=== PATIENT | female | born 1955 | race Asian ===

== ENCOUNTER 2019-07-31 13:44 | Outpatient (CLI) | payer OTHER ==
--- NOTE | 2019-07-31 16:45 | Ultrasound Report ---
Reason: ABN MAMMO Procedure Date: 07/31/2019 Accession Number: [id number] / [id number] Procedure: US - Breast Unilateral Limited CPT Code: FULL RESULT: EXAM: Breast Unilateral Limited, Diagnostic Dig Bilat DATE: 07/31/2019 4:03 PM CLINICAL HISTORY: Palpable right breast lump COMPARISON: 07/01/2014, 11/07/2011, 10/27/2010 TECHNIQUE: (B) - Bilateral CC and MLO views were obtained. PARENCHYMAL PATTERN: (D) - The breasts demonstrate heterogeneously dense fibroglandular parenchyma bilaterally. FINDINGS: Right breast: There is a spiculated mass in the 3:00 position 4 cm from the nipple there are a few faint associated calcifications. Left breast: No dominant mass, architectural distortion, skin thickening, or suspicious microcalcifications. RIGHT BREAST ULTRASOUND: TECHNIQUE: Real-time scanning by the director hr communications with saved static images reviewed. FINDINGS: Corresponding to the palpable right breast mass is a 1.9 x 1.2 x 1.4 cm vascular irregular hypoechoic mass with posterior shadowing 3:00 position 4 cm from the nipple. IMPRESSION: Highly suggestive for malignancy. BI-RADS category 5. Right breast RECOMMENDATION: (BIOPSY) - ultrasound-guided core biopsy right breast Results called to ANA LILIA Almonte at 4:30 PM 07/31/2019. BI-RADS CATEGORY: (5) - Highly suggestive for malignancy. STANDARD QUALIFYING STATEMENTS: 1. This examination was not reviewed with the aid of Computer-Aided Detection (CAD). 2. A negative or benign imaging report should not preclude biopsy if clinically suspicious findings are present. 3. Dense breasts may obscure an underlying neoplasm. 4. This examination was reviewed with the aid of 3D breast imaging (tomosynthesis).
== END 2019-07-31 13:45 | disposition home or self-care (01) ==
LOC: DI 13:44
PROVIDERS: ATTEND Physician Assistant
DX: N63.15 Unspecified lump in the right breast, overlapping quadrants (principal)
CPT/HCPCS: 76642; 77066

== ENCOUNTER 2019-08-18 10:14 | Outpatient (CLI) | payer OTHER ==
[2019-08-18] MEDS ORDERED: BUPIVACAINE 0.5%-EPI 1:200000 PF 10 ML VIAL ONE (11:23)
[2019-08-18] MEDS ORDERED: BUFFERED LIDOCAINE 10 ML SYRINGE ONE (11:23)
--- NOTE | 2019-08-18 12:58 | Ultrasound Report ---
Reason: ABNORMAL MAMMOGRAM Procedure Date: 08/18/2019 Accession Number: [id number] / [id number] Procedure: US - Biopsy Breast Core CPT Code: Final Report FULL RESULT: EXAM: Diagnostic Dig RT, Biopsy Breast Core DATE: 08/18/2019 12:18 PM CLINICAL HISTORY: Suspicious mass right breast 3:00 4 cm from the nipple on recent diagnostic imaging. Patient presented with the newly palpable lump. TECHNIQUE: (R) - Right ultrasound-guided breast biopsy and post biopsy CC and ML mammography. Informed consent was obtained. Entry site was marked on the skin surface. The skin was prepped and draped in the usual sterile fashion. Skin and deeper tissues were anesthetized with 10 cc of 1% lidocaine. A small dermatotomy was made in the skin and then a coaxial 14-gauge achieve needle biopsy was utilized to obtain 3 core samples through the 1.9 cm mass right breast 3:00 4 cm from the nipple from a medial approach. A cork marker clip was then placed under direct sonographic guidance. [place] were removed and the hemostasis was achieved with direct pressure. The skin michelle was closed with Steri-Strips and overlying skin was bandaged. Postprocedural mammogram shows clip along the medial margin of the mass without evidence of complication. Patient tolerated the procedure well and was discharged in good condition. IMPRESSION: Successful core biopsy of 1.9 cm mass right breast 3:00 4 cm from the nipple. Final recommendations are pending histologic results. Radiologic/pathologic concordance will be performed and addendum to this report will be issued. Patient is scheduled to receive her biopsy results from ANA LILIA Young on 08/21/2019 at 3:00 PM.
[2019-08-18] MEDS ORDERED: BUFFERED LIDOCAINE 10 ML SYRINGE IU ONE (13:07)
[2019-08-18] MEDS ORDERED: BUPIVACAINE 0.5%-EPI 1:200000 PF 10 ML VIAL SUBQ ONE (13:07)
== END 2019-08-18 10:15 | disposition home or self-care (01) ==
LOC: DI 10:14
PROVIDERS: ATTEND Physician Assistant
DX: C50.811 Malignant neoplasm of overlapping sites of right female breast (principal); Z17.0 Estrogen receptor positive status [ER+]
CPT/HCPCS: 19083

== ENCOUNTER 2019-09-08 14:39 | Outpatient (CLI) | payer OTHER ==
[2019-09-08] MEDS ORDERED: GADOBUTROL 10 MMOL/10 ML VIAL ONE (14:53)
[2019-09-08 15:33] LABS: CREATININE 0.8 mg/dL (0.4-1.0)
[2019-09-08] MEDS: GADOBUTROL 10 MMOL/10 ML VIAL IVP ONE (18:21)
--- NOTE | 2019-09-09 15:24 | MRI Report ---
Reason: ADENOCARCINOMA, RT BREAST, ER AND ND POSITIVE Procedure Date: 09/08/2019 Accession Number: [id number] / [id number] Procedure: MRI - Breast W/WO Cont CPT Code: 47697 Final Report FULL RESULT: EXAM: Breast W/WO Cont DATE: 09/08/2019 6:11 PM CLINICAL HISTORY: The patient is a 63-year-old female with newly diagnosed right breast cancer history of right breast cancer- infiltrating carcinoma (ER and ND positive). Pretreatment MRI requested to assess for extent of disease. TECHNIQUE: Body Coil: (Limited chest MRI) - Coronal LFOV STIR Dedicated breast coil: Axial - precontrast STIR Axial - postcontrast sequential 1 minute three-dimensional FLASH (x 5) Axial - high-resolution volumetric water stimulation acquisition (VIEWS) CONTRAST USED: 6 mL Gadavist (gadolinium). POSTPROCESSING: Subtraction dynamic/curve analysis and multiplanar reformations with CAD stream FINDINGS: Parenchymal Pattern: Diffuse bilateral heterogeneously dense fibroglandular tissue. Computed small embedded simple cysts. Parenchymal enhancement: Minimal scattered foci of background enhancement. Right breast: The biopsy-proven malignant lesion in the 3:00 position is confirmed as an irregularly-marginated hypervascular mass measuring approximately 19 x 12 x 15 mm. A microclip is on the posterior lateral margin. There is no evidence for overlying skin invasion. There are no additional foci of mass or nonmass enhancement to suggest multifocal or multicentric disease. There are no pathologically enlarged axillary or internal mammary lymph nodes. Left breast: There is no focus of suspicious mass or nonmass enhancement. There are no pathologically enlarged axillary or internal mammary lymph nodes. Other: The heart appears prominent in size. A small pericardial effusion cannot be excluded. A 1.3 cm hyperintense lesion affiliated with the right lobe of the liver is a presumed cyst. IMPRESSION: 1. The biopsy-proven malignant mass in the right breast is confirmed and measures 19 mm in maximal dimension. There is no evidence for multifocal, multicentric or contralateral disease. 2. Incidental findings: Prominent heart size, small pericardial effusion and hepatic cyst. BI-RADS Category 6 -known malignancy. COMMENT: The literature indicates that a negative dynamic breast MRI has a high sensitivity and specificity for the detection of invasive carcinoma (to a threshold of 5 mm). MRI is not reliably sensitive for detecting ductal carcinoma in situ or large invasive neoplasms with only minimal enhancement (i.e. mucinous carcinoma). Normal-appearing lymph nodes on MRI may contain microscopic tumor. Appropriate clinical mammographic and sonographic followup should be performed if recommended. Negative MRI should not dissuade further evaluation of any suspicious mammographic calcifications and/or worrisome palpable masses.
== END 2019-09-08 14:40 | disposition home or self-care (01) ==
LOC: DI 14:39
PROVIDERS: ATTEND Surgery
DX: C50.911 Malignant neoplasm of unspecified site of right female breast (principal); Z17.0 Estrogen receptor positive status [ER+]
CPT/HCPCS: 36415; 77049; 82565

== ENCOUNTER 2019-09-29 08:21 | Day surgery (SDC) | payer OTHER ==
[~2019-09-29 08:21] MED LIST: CEFAZOLIN SODIUM IN 0.9 % NACL 2 GM/100 ML BAG IV ONE
[2019-09-29] MEDS ORDERED: PROPOFOL 200 MG/20 ML VIAL IVP ONE (08:22)
[2019-09-29] MEDS ORDERED: ACETAMINOPHEN 1,000 MG/100 ML 100 ML IV ONE (08:22)
[2019-09-29] MEDS ORDERED: DEXAMETHASONE 4 MG/ML VIAL IVP ONE (08:22)
[2019-09-29] MEDS ORDERED: GLYCOPYRROLATE 1 MG/5 ML VIAL IVP ONE (08:22)
[2019-09-29] MEDS ORDERED: ROCURONIUM 50 MG/5 ML VIAL IVP ONE (08:22)
[2019-09-29] MEDS ORDERED: KETOROLAC 30 MG/ML VIAL IVP ONE (08:22)
[2019-09-29] MEDS ORDERED: MIDAZOLAM 2 MG/2 ML VIAL IVP ONE (08:22)
[2019-09-29] MEDS ORDERED: fentaNYL 100 MCG/2 ML VIAL IVP ONE (08:22)
[2019-09-29] MEDS ORDERED: NEOSTIGMINE 1 MG/1 ML 10 ML MDV IVP ONE (08:22)
[2019-09-29] MEDS ORDERED: LACTATED RINGERS 1,000 ML IV ONE (08:53)
[2019-09-29] MEDS ORDERED: BUFFERED LIDOCAINE 10 ML SYRINGE ONE (09:01)
[2019-09-29] MEDS ORDERED: BUFFERED LIDOCAINE 10 ML SYRINGE IU ONE (09:50)
[2019-09-29] MEDS ORDERED: LIDOCAINE 1%-EPI 1:100000 20 ML MDV ONE (10:48)
[2019-09-29] MEDS ORDERED: BUPIVACAINE 0.5% PF 30 ML VIAL ONE (10:48)
--- NOTE | 2019-09-29 11:12 | Nuclear Medicine Report ---
Reason: RT BREAST CA Procedure Date: 09/29/2019 Accession Number: [id number] / [id number] Procedure: NM - Lymph Node Scintigraphy CPT Code: Final Report FULL RESULT: EXAM: SENTINEL LYMPH NODE RADIOTRACER INJECTION WITH IMAGING EXAM DATE: 09/29/2019 10:47 AM. CLINICAL HISTORY: Right breast CA. COMPARISON: None. TECHNIQUE: The injection site of the right breast was cleansed according to protocol. Next, a total of 0.49 mCi Tc-99m sulfur colloid in 1 cc saline was injected into the same site. After appropriate delay, the patient was imaged according to the protocol. FINDINGS: A single focus of uptake in the right axillary region consistent with sentinel lymph node is seen upon initial imaging, less than 3 minutes following injection. The patient tolerated the procedure well. IMPRESSION: 1. [place] lymph node injection, without complication. 2. 1 focus in the right axilla, compatible with sentinel lymph node. RADIA
--- NOTE | 2019-09-29 11:48 | ANESTHESIA ---
Pre-Anesthesia VS, & Labs - Diagnosis R breast CA - Procedure R breast lumpectomy Vital Signs: Temp Pulse Resp BP Pulse Ox 36.7 C 95 16 176/91 H 96 09/29/19 08:28 09/29/19 08:28 09/29/19 08:28 09/29/19 08:28 09/29/19 08:28 Height 5 ft 2 in Weight (kg) 61.1 kg Body Mass Index 25.0 - NPO >8 hours - Is Patient ?: No - Lab Results Lab results reviewed: Yes Home Medications and Allergies Magnesium 1 tab PO DAILY 09/08/19 Mother Cap 1 cap PO DAILY 09/08/19 Turmeric 1 cap PO DAILY 09/08/19 Ubidecarenone/Vit E Acet [Co Q-10 100 mg Softgel] 1 cap PO DAILY 09/08/19 Allergies/Adverse Reactions: Allergies Allergy/AdvReac Type Severity Reaction Status Date / Time No Known Drug Allergies Allergy Verified 09/08/19 16:11 Anes History & Medical History - Anesthetic History Anesthesia Complications: reports: No previous complications Family history of Anesthesia Complications: Denies Family history of Malignant Hyperthermia: Denies - Medical History Cardiovascular: reports: Hypertension, High cholesterol Pulmonary: reports: None Gastrointestinal: reports: None Urinary: reports: None Neuro: reports: None Musculoskeletal: reports: None Endocrine/Autoimmune: reports: Type 2 diabetes Skin: reports: None Smoking Status: Never smoker - Surgical History Gynecologic: section, Hysterectomy Orthopedic: Other Exam General: Alert, Oriented x3, Cooperative Dental: Partials Upper Mouth Openin Fingerbreadth Neck Mobility: Normal Mallampati classification: II Thyromental Distance: 4-6 cm Respiratory: Lungs clear, Normal breath sounds Cardiovascular: Regular rate Neurological: Normal speech Mental/Cognitive Status: Alert/Oriented X3, Normal for patient Cognitive Status: Within normal limits Plan Anesthesia Type: General, Other Block (PECS 1&2 blocks) Regional Block: Per Surgeon's request for Post Op pain control Consent for Procedure(s) Verified and Reviewed: Yes Code Status: Attempt Resuscitation ASA classification: 3-Severe systemic disease Is this case an emergency?: No
--- NOTE | 2019-09-29 12:53 | OPERATIVE REPORT ---
Operative Report - General Procedure Date: 09/29/19 Planned Procedure: Right breast lumpectomy and sentinel node biopsy Pre-Op Diagnosis: Right breast cancer Procedure Performed: Right breast lumpectomy and sentinel node biopsy Post Op Diagnosis: Right breast cancer - Procedure Note Primary Surgeon: Néstor Anesthesia Provider: KARLY Moy Anesthesia Technique: General LMA, Local, Regional block Pathology: 1. [place] node - 10 [place] [address] in a background of <15 2. Right breast mass with wire 3. Additional superior margin Estimated Blood Loss (mL): 20 Findings: one sentinel node Mass, clip and wire all contained within the specimen Complications: None apparent - Other Other Information/Narrative: After obtaining informed consent the patient is brought to the operating room and placed in the supine position on the operating table. Following successful induction of general anesthesiaAs well as a regional block to the right pectoralis region, appropriate padding of all bony prominences, and placement appropriate monitors, the right chest and axilla were prepped and draped in the standard surgical fashion. A timeout was held per scope protocol. All elements of the surgical safety checklist were followed before, during, and after the procedure. We began the procedure with the sentinel node biopsy in the right axilla. The neoprobe was used to localize the site of greatest uptake. The skin over this region was infiltrated with a mixture of local anesthetics to create a field block, an incision was created here and carried down through the skin and subcutaneous tissue to enter the axillary node packet. The sentinel node was identified using the neoprobe. It was elevated into the field and a variant in each parent lymphatics addressed with hemoclips. It was then passed from the table as a specimen and a 10-second count was recorded. Background in the axilla was checked again in the highest 1 second count was found to be 15. The wound was then checked for hemostasis and irrigated with warm water. It was closed in 2 layers with Vicryl Monocryl suture. We turned our attention to the right breast. A periareolar incision was created at the edge of the nipple areolar complex medially in the breast. This was carried through the skin to enter the breast tissue below. Our dissection was carried medially and superiorly beyond the localizing wire so that the breast tissue was carefully liberated from the overlying dermis. The same procedure was repeated on the posterior surface of this mass releasing the breast tissue from the underlying pectoralis muscle. We the entire mass was surrounded, it was removed in a single piece and marked for orientation. The specimen was submitted to radiology. The radiologist called back in the room remarking that he would be more comfortable with a larger superior margin. We identified the superior edge and grasped with an Allis clamp. The superior breast tissue was then taken off of the dermis anteriorly and the muscle posteriorly and the additional breast tissue superiorly. This piece was liberated and marked for orientation as well. It was submitted separately.The wound was then checked for hemostasis and irrigated with warm water. When we were satisfied with hemostasis, a small piece of Surgicel was placed over the exposed muscle to add certainty to our hemostasis.The skin incision was then closed in 2 layers with Vicryl Monocryl suture and Dermabond was applied to the skin at both incision sites. A pressure dressing was applied as well as a binder. All sponge, needle, and instrument counts were correct at the conclusion of the case. The patient was allowed awaken from anesthesia without difficulty and taken to the postanesthesia care unit in good condition.
[2019-09-29] MEDS ORDERED: IBUPROFEN 600 MG TABLET PO PRN (12:58)
[2019-09-29] MEDS ORDERED: ONDANSETRON 4 MG/2 ML VIAL IVP PRN (12:58)
[2019-09-29] MEDS ORDERED: oxyCODONE 5 MG TABLET PO PRN (12:58)
[2019-09-29] MEDS ORDERED: ACETAMINOPHEN 325 MG TABLET PO PRN (12:58)
--- NOTE | 2019-09-29 13:00 | Mammography Report ---
Reason: S/P RIGHT BREAST LUMPECTOMY Procedure Date: 09/29/2019 Accession Number: [id number] / [id number] Procedure: SHIRIN - Breast Specimen Surgical CPT Code: Final Report FULL RESULT: EXAM: Wire Localization RT, Breast Specimen Surgical DATE: 09/29/2019 10:04 AM CLINICAL HISTORY: RT BREAST CA COMPARISON: None. TECHNIQUE/FINDINGS: The risks, benefits, and alternatives of the procedure were discussed with the patient. All questions were answered. Written and verbal consent were obtained. The right breast was positioned in the stereotactic mammography machine and prepped and draped in a sterile manner. Local anesthesia was performed with 1% lidocaine. A 5 cm Kopan's type localization wire was advanced into the breast lesion immediately adjacent to the pre-existing biopsy marker. Confirmatory imaging was obtained. The patient appeared to tolerate the procedure well and was transported to the nuclear medicine department for lymph node injection and subsequent surgery. A single intraoperative specimen radiograph was obtained which demonstrated the biopsy marker, localization wire as well as architectural distortion and suspicious calcifications seen in the biopsy-proven malignancy. IMPRESSION: Successful wire localization with excisional specimen containing localization wire, biopsy marker and mammographically suspicious lesion. RADIA
--- NOTE | 2019-09-29 13:00 | Mammography Report ---
Reason: RT BREAST CA Procedure Date: 09/29/2019 Accession Number: [id number] / [id number] Procedure: SHIRIN - Wire Localization RT CPT Code: 49858 Final Report FULL RESULT: EXAM: Wire Localization RT, Breast Specimen Surgical DATE: 09/29/2019 10:04 AM CLINICAL HISTORY: RT BREAST CA COMPARISON: None. TECHNIQUE/FINDINGS: The risks, benefits, and alternatives of the procedure were discussed with the patient. All questions were answered. Written and verbal consent were obtained. The right breast was positioned in the stereotactic mammography machine and prepped and draped in a sterile manner. Local anesthesia was performed with 1% lidocaine. A 5 cm Kopan's type localization wire was advanced into the breast lesion immediately adjacent to the pre-existing biopsy marker. Confirmatory imaging was obtained. The patient appeared to tolerate the procedure well and was transported to the nuclear medicine department for lymph node injection and subsequent surgery. A single intraoperative specimen radiograph was obtained which demonstrated the biopsy marker, localization wire as well as architectural distortion and suspicious calcifications seen in the biopsy-proven malignancy. IMPRESSION: Successful wire localization with excisional specimen containing localization wire, biopsy marker and mammographically suspicious lesion. RADIA
[2019-09-29 13:49] VITALS: BP 151/79
== END 2019-09-29 08:22 | disposition home or self-care (01) ==
LOC: SDS 08:21
PROVIDERS: ATTEND Surgery
PROC: 0HBT0ZZ Excision of Right Breast, Open Approach (ICD-10-PCS; principal; 2019-09-29 10:45)
PROC: 07B50ZX Excision of Right Axillary Lymphatic, Open Approach, Diagnostic (ICD-10-PCS; 2019-09-29 10:45)
DX: C50.211 Malignant neoplasm of upper-inner quadrant of right female breast (principal); Z17.0 Estrogen receptor positive status [ER+]; I10 Essential (primary) hypertension; E11.9 Type 2 diabetes mellitus without complications
CPT/HCPCS: 19281; 19301; 38525; 76098; 78195; J0131; J0690; J7120

== ENCOUNTER 2019-11-23 11:02 | Day surgery (SDC) | payer OTHER ==
[2019-11-23] MEDS ORDERED: CEFAZOLIN SODIUM IN 0.9 % NACL 2 GM/100 ML BAG IV ONE (11:13)
[2019-11-23] MEDS ORDERED: LACTATED RINGERS 1,000 ML IV ONE (11:26)
[2019-11-23] MEDS ORDERED: LIDOCAINE 1%-EPI 1:100000 20 ML MDV ONE (11:48)
[2019-11-23] MEDS ORDERED: BUPIVACAINE 0.5% PF 30 ML VIAL ONE (11:48)
--- NOTE | 2019-11-23 12:54 | ANESTHESIA ---
Pre-Anesthesia VS, & Labs - Diagnosis positive margin after lumpectomy - Procedure right lumpectomy for re-excision of margins Vital Signs: Temp Pulse Resp BP Pulse Ox 36.9 C 89 16 160/92 H 97 11/23/19 11:30 11/23/19 11:30 11/23/19 11:30 11/23/19 11:30 11/23/19 11:30 Height 5 ft 2 in Weight (kg) 830 kg Body Mass Index 25.0 - NPO >8 hours - Is Patient ?: No - Lab Results Current Lab Results: Laboratory Tests 11/23/19 11:41: POC Whole Bld Glucose 248 H Home Medications and Allergies Magnesium 1 tab PO DAILY 09/08/19 Mother Cap 1 cap PO DAILY 09/08/19 Turmeric 1 cap PO DAILY 09/08/19 Ubidecarenone/Vit E Acet [Co Q-10 100 mg Softgel] 1 cap PO DAILY 09/08/19 Allergies/Adverse Reactions: Allergies Allergy/AdvReac Type Severity Reaction Status Date / Time No Known Drug Allergies Allergy Verified 11/10/19 13:27 Anes History & Medical History - Anesthetic History Anesthesia Complications: reports: No previous complications - Medical History Cardiovascular: reports: Hypertension, High cholesterol Pulmonary: reports: None Gastrointestinal: reports: None Urinary: reports: None Neuro: reports: None Musculoskeletal: reports: None Endocrine/Autoimmune: reports: Type 2 diabetes (poorly controlled) Skin: reports: None Smoking Status: Never smoker Psychosocial: reports: No issues indicated - Surgical History General: Other (right breast lumpectomy) Gynecologic: section, Hysterectomy Orthopedic: Other Exam General: Alert, Oriented x3, Cooperative, No acute distress Dental: Partials Upper Mouth Openin Fingerbreadth Mallampati classification: II Thyromental Distance: 4-6 cm Respiratory: Lungs clear, Normal breath sounds, No respiratory distress, No accessory muscle use Cardiovascular: Regular rate, Normal S1, Normal S2, No murmurs Mental/Cognitive Status: Alert/Oriented X3, Normal for patient Plan Anesthesia Type: General Consent for Procedure(s) Verified and Reviewed: Yes Code Status: Attempt Resuscitation ASA classification: 2-Mild systemic disease Is this case an emergency?: No
[2019-11-23] MEDS ORDERED: INSULIN REGULAR HUMAN 100 UNIT/1 ML 10 ML MDV SUBQ ONE (13:02)
[2019-11-23] MEDS ORDERED: INSULIN REGULAR HUMAN 100 UNIT/1 ML 10 ML MDV ONE (13:07)
[2019-11-23] MEDS ORDERED: KETOROLAC 30 MG/ML VIAL IVP ONE (14:17)
[2019-11-23] MEDS ORDERED: PROPOFOL 200 MG/20 ML VIAL IVP ONE (14:17)
[2019-11-23] MEDS ORDERED: DEXAMETHASONE 4 MG/ML VIAL IVP ONE (14:17)
[2019-11-23] MEDS ORDERED: MIDAZOLAM 2 MG/2 ML VIAL IVP ONE (14:17)
[2019-11-23] MEDS ORDERED: ePHEDrine 50 MG/ML VIAL IVP ONE (14:17)
[2019-11-23] MEDS ORDERED: LIDOCAINE-MPF 2% 5 ML VIAL IM ONE (14:17)
[2019-11-23] MEDS ORDERED: fentaNYL 100 MCG/2 ML VIAL IVP ONE (14:17)
[2019-11-23] MEDS ORDERED: ONDANSETRON 4 MG/2 ML VIAL IVP ONE (14:17)
[2019-11-23] MEDS ORDERED: BUPIVACAINE 0.5% PF 30 ML VIAL INFIL ONE ×2 (14:43)
[2019-11-23] MEDS ORDERED: LIDOCAINE 1%-EPI 1:100000 30 ML MDV SUBQ ONE ×2 (14:43)
--- NOTE | 2019-11-23 15:09 | OPERATIVE REPORT ---
Operative Report - General Procedure Date: 11/23/19 Planned Procedure: Left breast lumpectomy for re-excision of margins after lumpectomy for breast cancer Pre-Op Diagnosis: Positive anterior and lateral margin after lumpectomy for breast cancer Procedure Performed: Left breast lumpectomy for re-excision of margins after lumpectomy for breast cancer Post Op Diagnosis: Positive anterior and lateral margin after lumpectomy for breast cancer - Procedure Note Primary Surgeon: Néstor Anesthesia Provider: KARLY Ramires Anesthesia Technique: General LMA Pathology: 1. anterior margin - maked short stitch superior and long stitich lateral 2. lateral margin - marked short stitch superior, long stitch lateral, and double stitch anterior Estimated Blood Loss (mL): 5 Findings: Healing seroma cavity without gross evidence of tumor Complications: None apparent - Other Other Information/Narrative: After obtaining informed consent, the patient is brought to the operating room and placed in the supine position on the operating table. Following successful induction of general anesthesia, appropriate padding of all bony prominences, and placement appropriate monitors, the right chest was prepped and draped in the standard surgical fashion. A timeout was held per scope protocol. All elements of the surgical safety checklist were followed before, during, and after the procedure. We began the procedure by infiltrating a mixture of local anesthetics in the healed scar in the medial aspect of the breast. We fashioned an incision to include the skin anterior to the pocket. The anterior margin had been positive and this was the dermis of the skin therefore a skin ellipse was included in the specimen. This was removed sharply and marked with a short stitch superior and a long stitch lateral. It was passed from the table as the anterior margin. We continued by obtaining a lateral margin from the dermis to the chest wall of approximately 2 cm. It was continued superiorly and inferiorly to the existing seroma cavity. The entire additional lateral margin was removed sharply. It was marked with a short stitch superior, long stitch lateral, and double stitch anterior and passed from the table as a specimen. The wound was checked for hemostasis and irrigated with warm water. We were satisfied that hemostasis was adequate, it was closed in 2 layers with Vicryl Monocryl suture and a pressure dressing was applied. All sponge, needle, and instrument counts were correct at the conclusion of the case. The patient was allowed awaken from anesthesia without difficulty and taken to the postanesthesia care unit in good condition.
[2019-11-23] MEDS ORDERED: ACETAMINOPHEN 325 MG TABLET PO PRN (15:16)
[2019-11-23] MEDS ORDERED: ONDANSETRON 4 MG/2 ML VIAL IVP PRN (15:16)
[2019-11-23] MEDS ORDERED: IBUPROFEN 600 MG TABLET PO PRN (15:16)
[2019-11-23] MEDS ORDERED: oxyCODONE 5 MG TABLET PO PRN (15:16)
[2019-11-23 16:42] VITALS: BP 154/80
== END 2019-11-23 11:03 | disposition home or self-care (01) ==
LOC: SDS 11:02
PROVIDERS: ATTEND Surgery
PROC: 0HBT0ZZ Excision of Right Breast, Open Approach (ICD-10-PCS; principal; 2019-11-23 12:30)
DX: C50.911 Malignant neoplasm of unspecified site of right female breast (principal); M96.843 Postprocedural seroma of a musculoskeletal structure following other procedure; Y83.6 Removal of other organ (partial) (total) as the cause of abnormal reaction of the patient, or of later complication, without mention of misadventure at the time of the procedure; E11.65 Type 2 diabetes mellitus with hyperglycemia; Z86.79 Personal history of other diseases of the circulatory system
CPT/HCPCS: 19301; A9270; J0690; J1815; J7120

== ENCOUNTER 2020-01-01 11:43 | Outpatient (CLI) | payer OTHER | END 2020-01-01 23:59 | disposition home or self-care (01) | LOC: LAB.R 11:43 | PROVIDERS: ATTEND Surgery | DX: L76.32 Postprocedural hematoma of skin and subcutaneous tissue following other procedure (principal) | CPT/HCPCS: 81599; 87070; 87075; 87205 ==

== ENCOUNTER 2020-06-20 15:11 | Outpatient (CLI) | payer OTHER ==
--- NOTE | 2020-06-20 17:01 | DEXA Report ---
PROCEDURE: Dexa Spine and/or Hip INDICATIONS: POST MENOPAUSAL TECHNIQUE: Dual energy x-ray absorptiometry (DXA) was performed on a [employer] System. Regions measur ed are the AP Spine, femoral neck, and if needed forearm. COMPARISON: None. FINDINGS: Lumbar Spine: Bone Mineral Density 0.850 g/cm/cm,T score -2.8, osteoporosis Left Hip: Bone Mineral Density 0.761 g/cm/cm,T score -2.0, osteopenia Left Femoral Neck: Bone Mineral Density 0.698 g/cm/cm, T score -2.4, osteopenia (T score greater or equal to -1.0: NORMAL) (T score from -1.1 to -2.4: OSTEOPENIA) (T score less than or equal to -2.5 to: OSTEOPOROSIS) Impression: Osteopenia is present at the left hip and left femoral neck and osteoporosis is present a long the lumbosacral spine. Patients with diagnosis of osteoporosis or osteopenia should have regular bone mineral density assess ment. For those eligible for Medicare, routine testing is allowed once every 2 years. Testing frequ ency can be increased for patients who have rapidly progressing disease or for those who are receivin g medical therapy to restore bone mass. Reviewed by: Jason Crowley MD on 06/20/2020 4:59 PM PDT Approved by: Jason Crowley MD on 06/20/2020 4:59 PM PDT Station ID: [id number]
== END 2020-06-20 15:12 | disposition home or self-care (01) ==
LOC: DI 15:11
PROVIDERS: ATTEND Internal Medicine Hematology & Oncology
DX: M81.8 Other osteoporosis without current pathological fracture (principal)
CPT/HCPCS: 77080

== ENCOUNTER 2020-08-31 12:11 | Outpatient (CLI) | payer OTHER ==
--- NOTE | 2020-09-02 13:17 | Mammography Report ---
BILATERAL DIGITAL DIAGNOSTIC MAMMOGRAM 3D/2D: 08/31/2020 CLINICAL: Personal history of right breast cancer. Comparison is made to exams dated: 09/08/2019 breast MRI, 08/18/2019 mammogram, 08/18/2019 ultrasound biopsy, 07/31/2019 ultrasound, and 07/01/2014 mammogram - [facility]. The tissue o f both breasts is heterogeneously dense. This may lower the sensitivity of mammography. No significant masses, calcifications, or other findings are seen in either breast. Stable appearance of the right breast lumpectomy scar. IMPRESSION: BENIGN There is no mammographic evidence of malignancy. Stable appearance of the right lumpectomy scar. Exam findings were conveyed to the patient. Patient is advised to monitor for significant change. A 1 year screening mammogram is recommended unless requested earlier. This exam was interpreted at Station ID: [id number]. NOTE: For mammograms, a report in lay terms will be sent to the patient. Approximately 15% of breast malignancies will not be visualized mammographically. In the management of a palpable breast mass, a negative mammogram must not discourage biopsy of a clinically suspicious lesion. Electronically Signed By: Roge Torres M.D. slc/:08/31/2020 13:33:22 ACR BI-RADS Category 2: Benign Finding(s) 3342F PARENCHYMAL PATTERN: (D) - The breast(s) demonstrate(s) heterogeneously dense fibroglandular joe arias. BI-RADS CATEGORY: (2) - 2 RECOMMENDATION: (ANNUAL) - Recommend routine annual screening mammography. [id number] 1 year screening LATERALITY: (B)
== END 2020-08-31 12:12 | disposition home or self-care (01) ==
LOC: DI 12:11
PROVIDERS: ATTEND Surgery
DX: Z12.39 Encounter for other screening for malignant neoplasm of breast (principal); Z08 Encounter for follow-up examination after completed treatment for malignant neoplasm; Z85.3 Personal history of malignant neoplasm of breast
CPT/HCPCS: 77066

== ENCOUNTER 2021-04-03 12:30 | Outpatient (CLI) | payer OTHER ==
--- NOTE | 2021-04-04 12:21 | Mammography Report ---
UNILATERAL RIGHT DIGITAL DIAGNOSTIC MAMMOGRAM 3D/2D: 04/03/2021 CLINICAL: Patient returns for a 6 month follow up of the right breast. Comparison is made to exams dated: 08/31/2020 mammogram, 09/29/2019 specimen, 09/29/2019 localizatio n, 09/08/2019 breast MRI, 08/18/2019 mammogram, and 08/18/2019 ultrasound biopsy - [facility]. The tissue of right breast is heterogeneously dense. This may lower the sensitivity of ma mmography. There is a benign post-surgical scar in the right breast at 1 o'clock middle depth. No other significant masses or calcifications are seen in the breast. IMPRESSION: BENIGN There is no mammographic evidence of malignancy. Return to annual mammogram screening schedule is rec ommended. Future imaging is recommended as follows: 09/01/2021 screening mammogram. This exam was interpreted at Station ID: [id number]. NOTE: For mammograms, a report in lay terms will be sent to the patient. Approximately 15% of breast malignancies will not be visualized mammographically. In the management of a palpable breast mass, a negative mammogram must not discourage biopsy of a clinically suspicious lesion. Electronically Signed By: Ceasar Lloyd M.D., jr/marylin:04/03/2021 13:21:00 ACR BI-RADS Category 2: Benign Finding(s) 3342F PARENCHYMAL PATTERN: (D) - The breast(s) demonstrate(s) heterogeneously dense fibroglandular parenchy ma. BI-RADS CATEGORY: (2) - 2 RECOMMENDATION: (ANNUAL) - Recommend routine annual screening mammography. [id number] return to screening LATERALITY: (B)
== END 2021-04-03 12:31 | disposition home or self-care (01) ==
LOC: DI 12:30
PROVIDERS: ATTEND Surgery
DX: Z08 Encounter for follow-up examination after completed treatment for malignant neoplasm (principal); Z85.3 Personal history of malignant neoplasm of breast

== ENCOUNTER 2021-10-09 16:44 | Outpatient (CLI) | payer OTHER ==
--- NOTE | 2021-10-10 14:36 | Mammography Report ---
BILATERAL DIGITAL DIAGNOSTIC MAMMOGRAM 3D/2D: 10/09/2021 CLINICAL: Routine screening. Personal history of right breast cancer. Comparison is made to exams dated: 04/03/2021 mammogram, 08/31/2020 mammogram, 09/29/2019 specimen, 11/30/2018 localization, 09/08/2019 breast MRI, and 08/18/2019 mammogram - [facility] . The tissue of both breasts is heterogeneously dense. This may lower the sensitivity of mammography . The patient is status post lumpectomy right breast in the upper inner quadrant. No significant masses, calcifications, or other findings are seen in either breast. IMPRESSION: NEGATIVE Right breast post surgical changes appear stable. There is no mammographic evidence of malignancy. Re turn to annual mammogram screening schedule is recommended. Findings and recommendations were convey ed to the patient at time of exam. This exam was interpreted at Station ID: [id number]. NOTE: For mammograms, a report in lay terms will be sent to the patient. Approximately 15% of breast malignancies will not be visualized mammographically. In the management of a palpable breast mass, a negative mammogram must not discourage biopsy of a clinically suspicious lesion. Electronically Signed By: Rossana jackson/:10/09/2021 13:21:20 ACR BI-RADS Category 1: Negative 3341F PARENCHYMAL PATTERN: (D) - The breast(s) demonstrate(s) heterogeneously dense fibroglandular joe arias. BI-RADS CATEGORY: (1) - 1 RECOMMENDATION: (ANNUAL) - Recommend routine annual screening mammography. [id number] return to screening LATERALITY: (B)
== END 2021-10-09 16:45 | disposition home or self-care (01) ==
LOC: DI 16:44
PROVIDERS: ATTEND Internal Medicine Hematology & Oncology
DX: C50.211 Malignant neoplasm of upper-inner quadrant of right female breast (principal); C50.811 Malignant neoplasm of overlapping sites of right female breast

== ENCOUNTER 2022-10-19 08:41 | Outpatient (CLI) | payer OTHER ==
--- NOTE | 2022-10-22 12:25 | Mammography Report ---
BILATERAL DIGITAL DIAGNOSTIC MAMMOGRAM 3D/2D: 10/19/2022 CLINICAL: Personal history of right breast cancer. Due for bilateral imaging. Comparison is made to exams dated: 10/09/2021 mammogram, 04/03/2021 mammogram, 08/31/2020 mammogram, breast MRI, and 08/18/2019 mammogram - [facility]. Both breasts are heterogeneously dense, which may obscure small masses (category c / 51-75% glandular tissue). No significant masses, calcifications, or other findings are seen in either breast. There has been no significant interval change. IMPRESSION: NEGATIVE There is no mammographic evidence of malignancy. A 1 year screening mammogram is recommended. This exam was interpreted at Station ID: [id number]. NOTE: For mammograms, a report in lay terms will be sent to the patient. Approximately 15% of breast malignancies will not be visualized mammographically. In the management of a palpable breast mass, a negative mammogram must not discourage biopsy of a clinically suspicious lesion. Electronically Signed By: Ceasar Lloyd M.D., jr/marylin:10/19/2022 14:08:46 ACR BI-RADS Category 1: Negative 3341F PARENCHYMAL PATTERN: (D) - The breast(s) demonstrate(s) heterogeneously dense fibroglandular joe arias. BI-RADS CATEGORY: (1) - 1 RECOMMENDATION: (ANNUAL) - Recommend routine annual screening mammography. [id number] 1 year screening LATERALITY: (B)
== END 2022-10-19 08:42 | disposition home or self-care (01) ==
LOC: DI 08:41
PROVIDERS: ATTEND Internal Medicine Hematology & Oncology
DX: C50.211 Malignant neoplasm of upper-inner quadrant of right female breast (principal); C50.811 Malignant neoplasm of overlapping sites of right female breast

== ENCOUNTER 2023-10-21 06:25 | Day surgery (SDC) | payer OTHER ==
[2023-10-21] MEDS ORDERED: LACTATED RINGERS 1,000 ML IV ONE ×2 (06:34→08:24)
[2023-10-21 06:49] VITALS: O2SAT 98
--- NOTE | 2023-10-21 07:14 | ANESTHESIA ---
Pre-Anesthesia VS, & Labs - Diagnosis screening - Procedure colonoscopy Vital Signs: Temp Pulse Resp BP Pulse Ox O2 Flow Rate 36 C L 93 14 139/58 H 98 10/21/23 06:35 10/21/23 06:35 10/21/23 06:35 10/21/23 06:35 10/21/23 06:35 Height: 5 ft 2 in Weight (kg): 58.6 kg Body Mass Index: 23.6 BMI Classification: Normal - NPO >8 hours (prep at 3am) - Is Patient ?: No Home Medications and Allergies Home Medications: Ambulatory Orders Empagliflozin [Jardiance] 10 mg PO DAILY 10/18/23 Glipizide [Glipizide Xl] 10 mg PO BID 10/18/23 Losartan [Cozaar] 50 mg PO BID 10/18/23 Magnesium 1 tab PO DAILY 09/08/19 Turmeric 1 cap PO DAILY 09/08/19 Anastrozole 1 mg PO DAILY 01/17/21 Empagliflozin [Jardiance] 10 mg PO DAILY 10/18/23 Glipizide [Glipizide Xl] 10 mg PO BID 10/18/23 Losartan [Cozaar] 50 mg PO BID 10/18/23 Allergies/Adverse Reactions: Allergies Allergy/AdvReac Type Severity Reaction Status Date / Time No Known Drug Allergies Allergy Verified 12/27/20 12:48 Anes History & Medical History - Anesthetic History Anesthesia Complications: reports: No previous complications - Medical History Cardiovascular: reports: Hypertension, High cholesterol Pulmonary: reports: None Gastrointestinal: reports: None Urinary: reports: None Neuro: reports: None Musculoskeletal: reports: None Endocrine/Autoimmune: reports: Type 2 diabetes Skin: reports: None Smoking Status: Never smoker History of Cancer?: Yes - Surgical History General: reports: Other Gynecologic: reports: section, Hysterectomy Orthopedic: reports: Other Exam General: Alert, Oriented x3 Dental: Partials Upper Mouth Opening: Greater than 4 Fingerbreadths Neck Mobility: Normal Mallampati classification: II Respiratory: Lungs clear Cardiovascular: Regular rate Plan Anesthesia Type: Total IV Consent for Procedure(s) Verified and Reviewed: Yes Code Status: Attempt Resuscitation ASA classification: 2-Mild systemic disease Is this case an emergency?: No
[2023-10-21] MEDS ORDERED: PROPOFOL 500 MG/50 ML 500 MG/50 ML VIAL ONE (07:25)
[2023-10-21 08:44] VITALS: BP 142/63
--- NOTE | 2023-10-21 09:02 | ANESTHESIA POST OP EVALUATION ---
Anesthesia Post Eval - Post Anesthesia Eval Vitals: Last Vital Signs Temp 36.4 C L 10/21/23 08:25 Pulse 99 10/21/23 08:41 Resp 22 10/21/23 08:41 BP 142/63 H 10/21/23 08:41 Pulse Ox 98 10/21/23 08:41 O2 Flow Rate CV Function Including HR & BP: Stable Pain Control: Satisfactory Nausea & Vomiting: Negative Mental Status: Baseline Respiratory Status: Airway Patent Hydration Status: Satisfactory Anesthesia Complications: None
== END 2023-10-21 06:26 | disposition home or self-care (01) ==
LOC: SDS 06:25
PROVIDERS: ATTEND Surgery
DX: Z12.11 Encounter for screening for malignant neoplasm of colon (principal); K64.1 Second degree hemorrhoids; E11.9 Type 2 diabetes mellitus without complications; I10 Essential (primary) hypertension; Z79.85 Long-term (current) use of injectable non-insulin antidiabetic drugs; Z79.899 Other long term (current) drug therapy
CPT/HCPCS: 45378; J7120

== ENCOUNTER 2023-10-22 10:42 | Outpatient (CLI) | payer OTHER ==
--- NOTE | 2023-10-22 16:41 | Mammography Report ---
BILATERAL DIGITAL DIAGNOSTIC MAMMOGRAM 3D/2D: 10/22/2023 CLINICAL: Oncology follow up of right breast cancer. Due for bilateral. Comparison is made to exams dated: 10/19/2022 mammogram, 10/09/2021 mammogram, 04/03/2021 mammogram, mammogram, 08/18/2019 mammogram, and 07/31/2019 mammogram - [facility]. Both breasts are heterogeneously dense, which may obscure small masses (category c / 51-75% glandular tissue). The patient is status post partial mastectomy right breast with stable post-operative findings. No significant masses, calcifications, or other findings are seen in either breast. IMPRESSION: NEGATIVE There is no mammographic evidence of malignancy. A 1 year screening mammogram is recommended. Findings and recommendations were conveyed to the patient during today's evaluation. This exam was interpreted at Station ID: [id number]. NOTE: For mammograms, a report in lay terms will be sent to the patient. Approximately 15% of breast malignancies will not be visualized mammographically. In the management of a palpable breast mass, a negative mammogram must not discourage biopsy of a clinically suspicious lesion. Electronically Signed By: Rubén Bryant M.D. aty/:10/22/2023 11:17:26 ACR BI-RADS Category 1: Negative 3341F PARENCHYMAL PATTERN: (D) - The breast(s) demonstrate(s) heterogeneously dense fibroglandular joe arias. BI-RADS CATEGORY: (1) - 1 Mammogram [id number] 1 year screening LATERALITY: (B)
== END 2023-10-22 10:43 | disposition home or self-care (01) ==
LOC: DI 10:42
PROVIDERS: ATTEND Internal Medicine Hematology & Oncology
DX: C50.911 Malignant neoplasm of unspecified site of right female breast (principal); R92.333 Mammographic heterogeneous density, bilateral breasts; Z90.11 Acquired absence of right breast and nipple